=== PATIENT | male | born 1950 | race Asian ===

== ENCOUNTER 2016-09-27 05:47 | Day surgery (SDC) | payer OTHER ==
[~2016-09-27] VITALS: Ht 165.1 cm; Wt 57.0 kg
[2016-09-27 06:46] VITALS: Ht 165.1 cm; Wt 57.0 kg
[2016-09-27] MEDS ORDERED: METFORMIN (06:52)
[2016-09-27] MEDS ORDERED: AMLODIPINE (06:52)
[2016-09-27] MEDS ORDERED: ASPIRIN (06:52)
[2016-09-27 07:25] VITALS: BP 140/80; PULSE 70; RESP 20
[2016-09-27] MEDS ORDERED: FENTAnyl 50 MCG/ML VIAL ONE (08:40)
[2016-09-27] MEDS ORDERED: MIDAZOLAM 1 MG/ML 2 ML INJ ONE ×2 (08:40)
--- NOTE | 2016-09-27 08:48 | GILP ---
DATE OF PROCEDURE: NAME OF PROCEDURES: Colonoscopy and biopsy. SURGEON: Marlena Osorio MD PREOPERATIVE DIAGNOSIS: Screening colonoscopy. POSTOPERATIVE DIAGNOSES: 1. Colonoscopy all the way to the cecum. 2. Small sigmoid colon polyp was removed. 3. Internal hemorrhoids. INDICATION FOR THE PROCEDURE: Mr. Gustavo Acosta is a 65-year-old male patient who noticed a change in the bowel habit. He had history of colon polyps. He needed screening colonoscopy. The procedure and possible complications are well explained to the patient, he understood and consen prachi to the procedure. DESCRIPTION OF PROCEDURE: Under the influence of fentanyl and Versed, the colonoscope was carefully introduced in the rectum and under direct vision, it was advanced all the way to the cecum. FINDINGS: The patient had a small sigmoid colon polyp and it was removed using the biopsy forceps. He had internal hemorrhoids. He tolerated the procedure very well, and there was no complication from the procedure. At the end of the procedure, he was awake with stable vital signs, and he was discharged home to the care of hi s family. IMPRESSION: Please see postoperative diagnosis. PLAN: Next screening colonoscopy in 10 years. Dictated By: MARLENA YU/JOHN Conf#: [id number] DID#: [id number]
[2016-09-27 08:55] VITALS: BP 119/78; PULSE 63; RESP 18
== END 2016-09-27 08:41 | disposition home or self-care (01) ==
LOC: GIL 05:47
PROVIDERS: ATTEND Internal Medicine Gastroenterology
DX: Z12.11 Encounter for screening for malignant neoplasm of colon (principal); D12.5 Benign neoplasm of sigmoid colon; K64.8 Other hemorrhoids; E11.9 Type 2 diabetes mellitus without complications; I10 Essential (primary) hypertension
CPT/HCPCS: 45380; 82962; 88305; J2250; J3010